=== PATIENT | male | born 1935 | race Caucasian/White ===

== ENCOUNTER 2016-06-26 06:07 | Day surgery (SDC) | payer MEDICARE ==
[~2016-06-26 06:07] MED LIST: ADVIL200 MG PO; ARIXTRA2.5 MG/0.5 SQ; ASPIR-TRIN325 MG PO; DULCOLAX10 MG/SUPP RC; DULCOLAX5 MG PO; GLUCOSAMINE-CH1 EA12 PO; MAALOX PLUS X-355 ML PO; MILK OF MA400 MG/5 M PO; NATURAL VIT PO; NORCO 5/325 TAB1 TAB PO; NORCO 5/3251 TAB PO; SENOKOT-S TABLE1 TAB PO; TUMS500 M1 PO; TYLENOL325 MG PO; TYLENOL500 MG PO; VITAMIN D1000 UNIT PO
[2016-06-26 07:06] LABS: BASO % 0.2 % (0-2); EOS % 2.7 % (0-7); EOSINOPHIL ABSOLUTE COUNT 0.3 tho/cmm (0.0-0.7); HCT-HEMATOCRIT 45.8 % (36.0-53.5); IMMATURE GRANULOCYTES ABSOLUTE 0.03 tho/cmm (0-0.03); IMMATURE GRANULOCYTES PERCENT 0.3 % (0-0.3); LYMPH % 22.7 % (20-45); LYMPH ABSOLUTE COUNT 2.1 tho/cmm (0.8-4.5); MCH (MEAN CORPUSCULAR HGB) 30.2 pg (28.0-32.0); MCHC MEAN CORPUSCULAR HGB CONC 34.9 % (32.0-36.0); MCV (MEAN CELL VOLUME) 86.6 fl (82.0-96.0); MEAN PLATELET VOLUME 10.8 cmc (9.4-12.4); MONO % 12.3 % (0-12); MONOCYTE ABSOLUTE COUNT 1.1 tho/cmm (0.0-1.2); NEUTROPHIL ABSOLUTE COUNT 5.6 tho/cmm (1.6-8.0); NEUTROPHIL-AUTOMATED 5.6 tho/cmm (1.6-8.0); NEUTROPHILS % 61.8 % (40-80); PLATELET COUNT 208 tho/cmm (150-450); RED BLOOD COUNT 5.29 mil/cmm (4.40-5.70); WHITE BLOOD COUNT 9.1 tho/cmm (4.0-10.0)
[2016-06-26 07:07] LABS: PROTHROMBIN TIME 11.3 SECONDS (9.0-13.6)
== END 2016-06-26 09:30 ==
LOC: US 06:07 → SHSB 06:08
PROVIDERS: Radiology Diagnostic Radiology
PROC: 07BD3ZX Excision of Aortic Lymphatic, Percutaneous Approach, Diagnostic (ICD-10-PCS; principal; 2016-06-26)
DX: C77.2 Secondary and unspecified malignant neoplasm of intra-abdominal lymph nodes (principal); C80.1 Malignant (primary) neoplasm, unspecified; H26.9 Unspecified cataract; K43.9 Ventral hernia without obstruction or gangrene; K57.90 Diverticulosis of intestine, part unspecified, without perforation or abscess without bleeding; R63.0 Anorexia; Z90.49 Acquired absence of other specified parts of digestive tract; Z96.649 Presence of unspecified artificial hip joint; Z87.891 Personal history of nicotine dependence
CPT/HCPCS: J7030